=== PATIENT | female | born 1950 | race Caucasian/White ===

== ENCOUNTER 2018-02-06 18:09 | Emergency (ER) | payer MEDICARE, OTHER ==
[2016-10-09 08:38] VITALS: BMI 23.2
[~2018-02-06 18:09] MED LIST: HYDROCHLOROTHIA25 MG PO; HYDROCODONE-APA1 TAB PO; K-DUR20 MEQ PO; PROZAC20 MG PO; TEMAZEPAM30 MG PO; TOPROL XL25 MG PO; VITAMIN D250000 UNIT PO; ZANTAC150 MG PO
== END 2018-02-06 22:13 | disposition home or self-care (01) ==
LOC: D.ER 18:09
DX: M54.16 Radiculopathy, lumbar region (principal)